=== PATIENT | female | born 1955 | race African-American/Black ===

== ENCOUNTER 2020-01-24 02:15 | Inpatient (IN) | payer MEDICARE, MEDICAID, OTHER ==
[2020-01-24 03:16] LABS: Anion Gap 19 mmol/L (10-20); BUN (Urea Nitrogen) 7 mg/dL (9.8-20.1); Calc. Creatinine Clearance 0 mL/min (70-130); Calcium 9.6 mg/dL (7.8-10.44); Carbon Dioxide 23 mmol/L (23-31); Chloride 100 mmol/L (98-107); Estimated GFR-MDRD Greater than 90; Glucose 119 mg/dL (80-115); Potassium 3.3 mmol/L (3.5-5.1); Sodium 139 mmol/L (136-145)
--- NOTE | 2020-01-24 07:09 | PDOC.HHP ---
Hospitalist HPI - History of Present Illness Abdominal Pain and diarrhea History of Present Illness: PCP:Unknown The patient is a poor historian, so the H&P was taken from her daughter, Kirstin Asencio via telephone. The patient is a 64 year old female with past medical history significant for HTN and paranoid schizophrenia that presents to the hospital as a transfer from [place] [facility] for abdominal pain for approximately 1-2 weeks. The patient has been complaining of abdominal pain, loc ated pelvic region, described as "my body is breaking down", exacerbated and relieved by nothing. She currently denies any abdominal pain. Reports associated diarrhea. Denies nausea, vomiting, hematochezia, melena. Denies any urinary symtpoms. Denies fever or chills. At [place] emergency room, she was found to have hyperbilirubinemia, hypomagnesium, hyperkalemia and elevated alk. phos with mild transaminitis. CT abdomen/pelvis and RUQ were performed, along with replacement of electrolytes. General surgery and oncology were consulted as well. The patient was transferred to [facility] for further evaluation. ED Course: VITAL SIGNS Katie Jan 24, 2020 02:25 MARLA Busch Susannah BP: 189/106, MAP: 133, Pulse: 76, Resp: 20, Temp: 98.5 (Oral), Pain: 0, O2 sat: 98 on (Room Air), Time: 01/24/2020 02:25. VITAL SIGNS [facility] Jan 24, 2020 03:41 MARLA Busch Susannah BP: 174/80, MAP: 111, Pulse: 79, Resp: 15, Temp: 98.7 (Oral), Pain: 0, O2 sat: 97 on (Room Air), Time: 01/24/2020 03:41. VITAL SIGNS [facility] Jan 24, 2020 05:09 MARLA Busch Susannah BP: 157/82, Pulse: 77, Resp: 16, Temp: 98.3 (Oral), Pain: 0, O2 sat: 96 on (Room Air), Time: 01/24/2020 05:09. VITAL SIGNS [facility] Jan 24, 2020 06:11 MARLA Busch Susannah BP: 120/62, Pulse: 75, Resp: 16, Temp: 98.1 (Oral), Pain: 0sleep, O2 sat: 98 on (Room Air), Time: 01/24/2020 06:11 Medications: NS maintenance fluid. Hospitalist ROS - Review of Systems Constitutional: denies: fever, chills Eyes: denies: vision change ENT: denies: throat pain Respiratory: denies: cough, shortness of breath, hemoptysis, SOB with excertion, pleuritic pain, sputum, wheezing Cardiovascular: denies: chest pain, palpitations, edema, light headedness Gastrointestinal: reports: abdominal pain (pelvic region, generalized), diarrhea. denies: nausea, vomiting, melena, hematochezia Genitourinary: denies: dysuria, frequency, hematuria, retention Musculoskeletal: reports: other (generalized) Skin: denies: rash, bruising Neurological: reports: weakness (generalized). denies: change in speech All other systems reviewed; all pertinent +/- noted in HPI/Subj - Medication Medications: Unknown. Daughter to bring home medications to hospital this morning. Allergies: No Known Drug Allergies Hospitalist History - Past Medical History Source: patient, RN notes reviewed, old records Cardiac: reports: HTN Psych: reports: Schizophrenia (paranoid) - Past Surgical History Past Surgical History: reports: no pertinent history - Family History Family History: reports: Other (non contributory for cancer) - Social History Smoking Status: Never smoker Alcohol: reports: None Drugs: reports: none Living Situation: With Family Occupation: Lives in [place] with daughter, fully independant, disabled/does not work Activity level: independent ambulation - Exam General Appearance: NAD, awake alert Eye: PERRL, scleral icterus ENT: normocephalic atraumatic, moist mucosa Neck: supple, symmetric, no JVD Heart: RRR, no murmur, no gallops, no rubs, normal peripheral pulses, murmur present, II/IV Respiratory: CTAB, no wheezes, no rales, no ronchi, normal chest expansion, no tachypnea Gastrointestinal: soft, non-tender, non-distended, normal bowel sounds, no bruit, no guarding, no rigidity Extremities: no cyanosis, no edema Skin: no rashes Neurological: cranial nerve grossly intact, normal sensation to touch, no weakness, no focal deficits Musculoskeletal: normal tone, normal strength Psychiatric: A&O x 3. negative: normal affect (Flat) Hospitalist Results - Labs Result Diagrams: 01/24/20 02:48 Lab results: Sodium 139 mmol/L (136-145) 01/24/20 02:48 Potassium 3.3 mmol/L (3.5-5.1) L 01/24/20 02:48 Chloride 100 mmol/L (98-107) 01/24/20 02:48 Carbon Dioxide 23 mmol/L (23-31) 01/24/20 02:48 BUN 7 mg/dL (9.8-20.1) L 01/24/20 02:48 Creatinine 0.56 mg/dL (0.6-1.1) L 01/24/20 02:48 Glucose 119 mg/dL (80-115) H 01/24/20 02:48 Calcium 9.6 mg/dL (7.8-10.44) 01/24/20 02:48 Laboratory Tests 01/23/20 01/23/20 01/23/20 23:20 23:20 23:30 WBC 7.7 Hgb 11.4 L Hct 37.4 Plt Count 324 PT 15.7 H INR 1.3 APTT 37.0 H Urine Protein 30 A Urine Glucose (UA) 100 A Urine Ketones Trace A Urine Blood Trace A Urine Bilirubin Large A Amorphous Crystals Rare A Urine Bacteria 1+ A - Radiology Interpretation US - abdomen Status: report reviewed by me Additional Comment: RUQ U/S revealed a CBD of 6.9 mm, mild intrahepatic biliary ductal dilation, and mild GB wall thickening noted at 4 mm. No pericholecystic fluid, cholelithiasis. CT scan - abdomen Status: report reviewed by me Additional Comment: Abdomen/pelvis CT scan, with contrast shows, Other findings: Numerous metastatic lesions involving the right eighth rib, liver, abdominal lymph nodes, peritoneum, bladder, spine, and sacrum. Metastatic colon cancer favored. Hospitalist H&P A/P - Problem (1) Hyperbilirubinemia Code(s): E80.6 - OTHER DISORDERS OF BILIRUBIN METABOLISM Status: Acute (2) Hypokalemia Code(s): E87.6 - HYPOKALEMIA Status: Acute (3) Low magnesium level Code(s): R79.0 - ABNORMAL LEVEL OF BLOOD MINERAL Status: Acute (4) Metastatic disease Code(s): C79.9 - SECONDARY MALIGNANT NEOPLASM OF UNSPECIFIED SITE Status: Acute (5) Paranoid schizophrenia Code(s): F20.0 - PARANOID SCHIZOPHRENIA Status: Chronic - Plan Plan: 64/F with presents as transfer from [place] emergency department for chief complaint of abdominal pain. Admit to medical floor, inpatient status. Expected length of stay greater than 2 midnights. #Hyperbilirubinemia Presented with T bilirubin 10. Alk phos 1060. Mild transaminitis: AST 107, ALT 102. RUQ positive cholelithiasis with mild gallbladder wall thickening with intrahepatic duct dilatation. CTA ABD/pelvis Focal luminal thickening to the transverse colon, suspected malignancy, recommend colonoscopy. Possible cholecystitis with cholelithiasis and intra-hepatic biliary ductal dilatation, consider GI and surgery consultation. Peritoneal metastatic disease/carcinomatosis suspected. 1.2 cm left adrenal lesion, CT chest recommended. Numerous lesions throughout the visualized spine, cannot exclude metastatic disease. Destructive soft tissue lesions of the sacrum, consider PET CT. Right eighth rib solid lesion, measuring 7 x 5.1 cm,, recommend MRI/CT Consult GI, oncology, general surgery. N.p.o. IV fluids. Potassium 40 mEq x 1 dose now. Monitor electrolytes. Analgesia and antiemetics PRN. #Hypokalemia Patient presented with a potassium of 2.5, replaced in Rodríguez. On admission K 3.3. Will replace with 40 mEq IVP x1 now. Recheck level in a.m. #Low serum magnesium level Presented with a magnesium level 1.4, replaced in Rodríguez. Currently Mg 2.0. We will continue to monitor. #Metastatic disease There is no family history of cancer. Upon examination, patient resting comfortably in bed. We have consulted oncology and general surgery, along with GI. Recommendations as above. #Paranoid schizophrenia Stable. Denies SI/HI. Upon exam flat affect, cooperative. Daughter to bring home medication list today. When reconciled, will restart home medications as appropriate. Lovenox for DVT prophylaxis. Protonix for GI prophylaxis. Full code. Designated medical decision-maker is Kirstin Asencio (daughter) at [phone]. Discussed case with Dr. Aiken.
--- NOTE | 2020-01-24 07:21 | ULT ---
PRELIMINARY REPORT/[facility]/EMERGENCY AFTER HOURS PROCEDURE Receipt of this report by the clinical staff was confirmed with Raquel Lozano MD by Suly Navarro on S 2019 03:37:00 CDT. Addendum electronically signed by Suly Navarro on January 24, 2020 3:38:46 AM CDT EXAM: US Abdomen Limited, Right Upper Quadrant. CLINICAL HISTORY: Abd pain, diarrhea, hyperbilirubin TECHNIQUE: Real-time ultrasound of the right upper quadrant with image documentation. COMPARISON: None provided. FINDINGS: LIVER: Measures 16 cm. GALLBLADDER: Mobile cholelithiasis measures up to 2.8 cm. Mild wall thickening is noted at 4 mm. No pericholecyst ic fluid. COMMON BILE DUCT: Appears prominent at 6.9 mm. Mild intrahepatic biliary ductal dilatation is noted. PANCREAS: The pancreatic duct measures 3 mm. The distal pancreas is obscured by overlying bowel gas. RIGHT KIDNEY: Unremarkable. No hydronephrosis. Measures 10 cm and demonstrates a 1 cm cyst IMPRESSION: Cholelithiasis with mild gallbladder wall thickening suggesting acute cholecystitis. Mild intrahepat ic biliary ductal dilatation is noted. ELECTRONICALLY SIGNED BY: Jaun Mcdonald MD Jan 24, 2020 3:34:23 AM CDT This report is intended for review by the ordering physician only, in accordance of law. If you recei ve this report in error, please call [facility] at [phone]. FINAL REPORT EXAM: US Gallbladder RUQ CLINICAL HISTORY: Abdominal pain. Diarrhea. Hyperbilirubinemia. COMPARISON: None. FINDINGS: Pancreas: Head of the pancreas has a normal echotexture. The remainder the pancreas is obscured by b owel gas Liver:Hepatic parenchyma has a normal echotexture. No hepatic masses or intrahepatic biliary dilatati on. Right hepatic lobe: 16 cm cm Gallbladder: Sonographic evidence of cholelithiasis. Juice Tester gallstone measures 2.8 cm. Gallbl adder wall is thickened, measuring 0.4 cm. No pericholecystic fluid.. Galeas's sign:Negative Portal Vein: Patent. Appropriate directional flow Bile ducts: Prominent common bile duct measuring 0.7 cm. There is intrahepatic biliary dilatation. Right kidney: No hydronephrosis. 1 cm exophytic cyst.. Right kidney measures 10.1 x 4.1 x 4.2 cm in l ength. IMPRESSION: 1. This report is in agreement with initial report by [facility]. 2. Sonographic evidence of cholelithiasis with gallbladder wall thickening. No pericholecystic fluid. Negative Galeas's sign. Findings are equivocal for cholecystitis. Consider HIDA scan. 3. Dilatation of the common bile duct and intrahepatic biliary system. Correlate for choledocholithia sis. Transcribed Date/Time: 01/24/2020 7:37 AM
[2020-01-24 07:35] VITALS: BMI 24.1
--- NOTE | 2020-01-24 07:43 | CT ---
PRELIMINARY REPORT/[facility]/EMERGENCY AFTER HOURS PROCEDURE CLINICAL HISTORY: Pt is a 64 yo female with PMH significant for schizophrenia, HTN who presents as a transfer for a [address] [place] history of abdominal pain. She states the pain is in the lower quadrants which brought her in but she denies any pain at this time. She denied N/V, constipation, melena. Endorsed a diarrhea since 2 weeks ago and has become incontinent. She otherwise denies any review of systems. She denies any prior liver pathology including hepatitis. She was encouraged by her family to be seen in the ED. TECHNIQUE: Axial computed tomography images of the abdomen with intravenous contrast. CONTRAST: With; ISOVUE & ISOVUE 370,100mL COMPARISON: Ultrasound gallbladder same day FINDINGS: LUNG BASES: Visceral pleural reflection in the right lung is noted, simulating a pneumothorax. Medially, a bleb is visualized. HEPATICO PANCREATIC BILIARY There is soft tissue fullness in the region of the aparna hepatis with what appears to be enhancing ve rsus necrotic lymph nodes (for example axial image 55/187, series 5). Cholelithiasis Marked biliary distention and wall thickening with intrahepatic ductal dilation; CBD does not appear overtly dilated. Mild free fluid surrounding the liver. Free fluid in the right paracolic gutter. Pancreatic duct is seen, not significantly dilated. SPLEEN: Unremarkable. ADRENAL GLANDS: 1.2 cm left adrenal lesion. KIDNEYS, URETERS, AND BLADDER: Focal nodular focus of enhancement along the posterior, superior bladder wall, best seen on axial bobby ge 149, series 5, sagittal image 602. It measures approximately 2.5 cm. No hydronephrosis or nephrolithiasis. No ureteral or bladder calculi. STOMACH AND BOWEL: Moderate-sized hiatal hernia. Focal luminal thickening in the transverse colon noted on axial image 80. No CT evidence of colitis or acute diverticulitis. APPENDIX: No CT evidence for appendicitis. No free air. Some degree of omental nodularity. REPRODUCTIVE Unremarkable as visualized. VASCULATURE: No aortic aneurysm. Diffuse calcific atherosclerosis. BONES: Right 8th rib demonstrates a solid lesion, well-circumscribed, ovoid, measuring 7 x 5.1 cm. Numerous indeterminate (partially sclerotic, somewhat lytic/lucent) lesions throughout the visualized spine. While some have the appearance of hemangiomas, metastatic disease is not excluded. Destructive soft tissue lesions of the sacrum. ABDOMINAL WALL AND SOFT TISSUES: Unremarkable. IMPRESSION: Focal luminal thickening in the transverse colon noted on axial image 80. Colonoscopy should be cons idered, malignancy suspected until proven otherwise. I favor the constellation of other findings are related to metastatic colon cancer. I am not convinced the patient have acute cholecystitis alth ough the gallbladder is distended and there is a gallstone; there is intrahepatic biliary ductal dilation, however given the constellation enhancing soft tissue mass and adenopathy in the aparna hepa tis region and around the pancreatic head, metastatic disease or external obstructing etiology favored. Consider MRCP, GI and surgical consultation. Colonoscopy/PET CT are also likely indicated . Peritoneal metastatic disease/carcinomatosis suspected. Focal nodular focus of enhancement along the posterior, superior bladder wall, best seen on axial bobby ge 149, series 5, sagittal image 602. It measures approximately 2.5 cm. Possible metastatic focus. There is soft tissue fullness in the region of the aparna hepatis with what appears to be enhancing /n ecrotic lymph nodes (for example axial image 55/187, series 5). Visceral pleural reflection in the right lung is noted, simulating a pneumothorax. Medially, a bleb is visualized. CT chest recommended. 1.2 cm left adrenal lesion, indeterminate Numerous indeterminate (partially sclerotic, somewhat lytic/lucent) lesions throughout the visualized spine. While some have the appearance of hemangiomas, metastatic disease is not excluded. Destructive soft tissue lesions of the sacrum. Consider PET CT. Right 8th rib demonstrates a well-circumscribed ovoid solid lesion, measuring 7 x 5.1 cm. MRI/CT lam acterization should be considered ELECTRONICALLY SIGNED BY: Kee Corral MD Jan 24, 2020 4:53:28 AM CDT This report is intended for review by the ordering physician only, in accordance of law. If you recei ve this report in error, please call [facility] at [phone]. FINAL REPORT Exam: CT angiogram of the abdomen and pelvis TECHNIQUE: CT angiogram of the abdomen and pelvis performed with and without IV contrast. Sagittal an d coronal reformatted images are submitted for interpretation. FINDINGS: Abdomen CT: Chronic changes in lung bases. Normal heart size. Moderately distended gallbladder with gallstones. There is dilatation of the intrahepatic and extra h epatic biliary system. There is dilatation of the pancreatic duct. There is heterogeneous attenuation of the head of the pancreas, worrisome for pancreatic head mass. There are no abnormal enhancing masses in the liver, spleen or adrenal glands. Enhancing masses in the aparna hepatis which may represent markedly lymphadenopathy. Exophytic hypodensity emanating from the mid right renal cortex likely representing a cyst. Overall s ymmetric enhancement of the kidneys. Bilaterally no obstructive uropathy. No mesenteric mass, free air or free fluid. No evidence of a small bowel obstruction. Normal ileocecal junction. Normal caliber appendix. Scatter ed fecal material in a nondistended, nondilated colon. Diverticulosis, without evidence of diverticulitis. Pelvic CT: Uterus and adnexal structures do not demonstrate any acute abnormality. There is free fluid in the pe lvis. No significant lymphadenopathy, free air. There is abnormal enhancement involving the serosal margin of the dome of the urinary bladder. Osseous structures: There is evidence of a post traumatic fracture involving multiple right ribs. There is a large soft t issue mass expanding and eroding what is likely the eighth right rib. This soft tissue mass measures 5.8 x 4.3 cm. There are additional metastatic deposits/malignancy involving multiple thoraci c and lumbar vertebra, as well as the left aspect of the sacrum as well as the left and right iliac wing. Supervisor [employer] Workroom lesion in the right iliac bone measures 2.9 cm. Supervisor [employer] Work[employer] lesion in the sac rum measures 4.4 x 2.8 cm. There is presumed involvement of the left S2, S3 neural foramina. Additionally there is a metastatic focus in the right S3 level. Chronic joint changes in the right hip. IMPRESSION: 1. This report is in agreement with initial report by [facility]. 2. There appears to be extensive metastases with marked lymphadenopathy and osseous involvement. 3. Distribution may be due to a primary pancreatic mass involving the head of the pancreas with resul tant dilatation of the intra and extrahepatic biliary system. Evaluation of the alimentary canal is limited due to lack of adequate oral contrast distention. There are short segment of colonic mucosal thickening which may be due to inadequate distention. Underlying neoplasm cannot be excluded. 4. Further workup with a CT-guided biopsy of the right rib mass is recommended to obtain pathologic d iagnosis of tissue. Additionally, consider colonoscopy and abdomen MRI depending on the pathology results from the CT-guided biopsy. Transcribed Date/Time: 01/24/2020 7:53 AM
[2020-01-24] MEDS ORDERED: Ondansetron ODT 4 MG TAB PO PRN ×2 (07:47→08:23)
[2020-01-24] MEDS ORDERED: Ondansetron PF 4 MG/2 ML Vial IVP PRN ×2 (07:47→08:23)
[2020-01-24] MEDS ORDERED: Acetaminophen 325 MG TAB PO PRN ×2 (07:47→08:23)
[2020-01-24] MEDS ORDERED: Sodium Chloride 0.9% 1,000 ML IV SCH ×2 (08:00→08:55)
[2020-01-24] MEDS ORDERED: Morphine 2 MG/ML VIAL SLOW IVP PRN (08:27)
[2020-01-24] MEDS ORDERED: Potassium Chloride 40 MEQ in Premix Bag 1 BAG IVPB SCH (08:45)
[2020-01-24] MEDS: Potassium Chloride 20 MEQ in Premix Bag 1 BAG IVPB SCH ×2 (09:59→13:33)
[2020-01-24] MEDS: Enoxaparin Sodium 30 MG/0.3 ML SYRINGE SC SCH (09:59)
--- NOTE | 2020-01-24 11:52 | CON ---
DATE OF CONSULTATION: REASON FOR CONSULTATION: Possible metastatic disease. HISTORY OF PRESENT ILLNESS: Ms. Asencio is a 64-year-old female with a medical history of schizophrenia and hypertension, who was brought to the emergency room by her family for stool incontinence, jaundice, and weight loss over the past several weeks. She was apparently also having some diarrhea. She had a chemistry drawn in the emergency room, that showed a bilirubin of 10, so she underwent a CT of the abdomen and pelvis, that showed luminal thickening in the transverse colon. There was peritoneal metastatic disease. She had a nodular focus in the superior bladder wall. There was a soft tissue focus in the aparna hepatis, which was likely a necrotic lymph node. There was a 1.2 cm adrenal lesion. There were multiple lesions throughout the spine. There was a destructive soft tissue lesion in the sacrum. There was a soft tissue lesion in the right 8th rib, measuring 7 x 5.1 cm, all of which were concerning for neoplasm. She was then transferred to this facility and admitted for further workup. GI has been consulted. The patient was seen at bedside. There was no family present. She states that she has actually been constipated and taking a laxative to help her have a bowel movement. She states she eats well, but has lost weight. No known family history of cancer. She denies any pain at this time. PAST MEDICAL HISTORY: 1. Schizophrenia. 2. Hypertension. PAST SURGICAL HISTORY: None. ALLERGIES: UNKNOWN. HOME MEDICATIONS: Unknown. FAMILY HISTORY: She denies any known history of cancer. SOCIAL HISTORY: Lives with her daughter in [place]. Denies any alcohol, tobacco, or illicit drug use. REVIEW OF SYSTEMS: Ten-point review of systems is negative except for noted in HPI. PHYSICAL EXAMINATION: VITAL SIGNS: Temperature is 98.1, pulse is 75, respiratory rate 16, BP is 120/62, and she is 98% on room air. GENERAL: This is a well-developed, well-nourished female, in no acute distress. HEENT: Normocephalic and atraumatic. NECK: Supple. CV: Regular rate and rhythm. LUNGS: Clear anterior. ABDOMEN: Soft and nontender. Bowel sounds are positive. There is no hepatomegaly. EXTREMITIES: No clubbing or cyanosis. SKIN: No rash. NEUROLOGIC: Nonfocal. PERTINENT LABORATORY DATA AND X-RAYS: Current WBCs are 7.7, hemoglobin 11.4, hematocrit 37.4, and platelet count 324,000. She has 70% neutrophils and 20% lymphocytes. PT is 15.7, INR is 1.3, and PTT is 37. Sodium 139, potassium 3.3, chloride 100, CO2 is 23, BUN is 7, creatinine 0.56, and calcium 9.6. Magnesium 2. Bilirubin 10, AST is 107, ALT is 102, alkaline phosphatase is 1060, serum total protein 6.9, albumin 3.4, globulin 3.5, and lipase is 132. TSH is normal. Urine showed 1+ bacteria with negative leukocyte esterase or nitrite, but trace blood. Radiology per HPI. ASSESSMENT: Extensive metastatic disease with bone involvement, possibly gi malignancy. DISCUSSION: The patient needs a tissue biopsy for diagnosis. She has never had a colonoscopy, and per conversation, she is not interested in getting one. I would recommend a CT-guided biopsy of this large right rib mass to obtain pathological diagnosis. GI has been consulted for their opinion regarding her hyperbilirubinemia. We would recommend a palliative care consult as well. We will return with recommendations once a tissue diagnosis has been confirmed. Thank you for the consult. Job ID: [id number] [email or web address]
[2020-01-24 15:28] LABS: Bilirubin 2+ (Negative); Blood, Urine Negative (Negative); Clarity Turbid (Clear); Glucose, Urine (Dipstick) Normal (Negative); Ketone, Urine Negative (Negative); Leukocyte Negative Leu/uL (Negative); Nitrite Negative (Negative); Protein, Urine (Dipstick) 10 mg/dL (Neg-Trace); RBC/HPF 0-3 HPF (0-3); Specific Gravity, Urine 1.035 (1.002-1.036); Urobilinogen Normal mg/dL (Less than 2)
[2020-01-24 15:33] LABS: Bacteria/HPF None Seen HPF (None Seen)
[2020-01-24 17:13] LABS: SARS-CoV-2 MS2 Positive; SARS-CoV-2 N Gene Negative; SARS-CoV-2 S Gene Negative; SARS-CoV-2 by NAA Not Detected (NotDetected); SARS-CoV-2 orf1ab Negative
--- NOTE | 2020-01-24 21:00 | CON ---
DATE OF CONSULTATION: 01/24/2020 CHIEF COMPLAINT: Abdominal pain. HISTORY OF PRESENT ILLNESS: Ms. Asencio is a 64-year-old woman who was brought to the emergency room in [place] by her daughter. Her daughter reports that she has been complaining of a burning epigastric discomfort, which is unusual for her. The patient states that she felt like her body had shut down a couple of different times, is unable to really describe this in more detail. The patient has not had nausea, vomiting, diarrhea, constipation, or blood in the stool. In the emergency room, she underwent CT scan of the abdomen and pelvis that showed multiple metastatic lesions in the abdomen and bones. GI was consulted to assist with obstructive jaundice from a pancreatic tumor and possible question of colon thickening by CT scan. PAST MEDICAL HISTORY: Significant for paranoid schizophrenia, for which she gets injections monthly, hypertension. She lives with her daughter, but has been able to maintain her ADLs herself. PAST SURGICAL HISTORY: Negative. FAMILY HISTORY: Negative for GI malignancies. SOCIAL HISTORY: No alcohol, tobacco, or drugs. ALLERGIES: NO KNOWN DRUG ALLERGIES. MEDICATIONS: Currently in the hospital, enoxaparin, pantoprazole. She has been on an injectable antipsychotic as an outpatient. She has been on bisoprolol with hydrochlorothiazide as an outpatient. REVIEW OF SYSTEMS: Negative x10 systems reviewed except as stated in history of present illness. PHYSICAL EXAMINATION: VITAL SIGNS: Temperature 98.9, pulse 80, blood pressure 149/81. GENERAL: She is in no acute distress. Alert and oriented x3. Her eyes have no scleral icterus. Oropharynx is clear without lesions. No cervical or supraclavicular lymphadenopathy. LUNGS: Clear to auscultation bilaterally. HEART: Regular rate and rhythm without murmur. ABDOMEN: Soft, nontender, and nondistended. Bowel sounds are present. EXTREMITIES: No lower extremity edema. NEUROLOGIC: Cranial nerves are grossly intact. LABORATORY DATA: White blood cell count 7.7, hemoglobin 11.4, MCV 86, platelets 324. INR 1.3. Creatinine 0.56. Bilirubin 10, AST 107, ALT 102, alkaline phosphatase 1060, albumin 3.4, lipase 132. TSH 1.12. IMAGING DATA: CT scan of the abdomen and pelvis shows metastatic disease with lymphadenopathy and bone involvement. She has a pancreatic mass involving the head of the pancreas causing dilation of the intra and extrahepatic bile ducts. The pancreatic duct is also dilated. There is a segment of colonic mucosal thickening. There are metastases in the liver and adrenal glands and bone and ribs and sacrum. IMPRESSION: Metastatic disease to the ribs and sacrum and liver and lymph nodes and adrenal glands. She has a mass in the head of the pancreas with obstructive jaundice. I would suspect pancreatic cancer would be most likely. There is a segment of colon thickening in the colon, which could indicate a neoplastic process there, but primary colon malignancy would be unlikely to have this type of presentation. RECOMMENDATIONS: 1. CT-guided biopsy of the rib lesion. 2. She and her daughter will consult with palliative care and Oncology. The patient has no abdominal pain or pruritis. If she chooses to undergo hospice care, then there is no indication for biliary stenting at this time. If the patient achieves a diagnosis and decides with Oncology that she will follow through with chemotherapy and it is expected that the chemotherapy will need to have biliary drainage, then we can perform ERCP with metal stenting of the bile ducts. 3. I will order a CT-guided biopsy of the rib lesion. I will then be available as needed depending on Oncology recommendations regarding treatment as to whether or not a biliary drainage becomes necessary. Please call if we can be of help in the meantime. Otherwise, I will follow up next week. Job ID: [id number]
[2020-01-25 06:11] LABS: INR-International Normal Ratio 1.2; PTT 33.2 sec (22.9-36.1); Prothrombin Time 15.3 sec (12.0-14.7)
[2020-01-25 06:12] LABS: #Basophils 0.1 thou/uL (0.0-0.2); #Eosinphils 0.3 thou/uL (0.0-0.7); #Lymphocytes 1.7 thou/uL (1.20-3.40); #Monocytes 0.6 thou/uL (0.11-0.59); #Neutrophils 4.4 thou/uL (1.40-6.50); %Basophils 0.7 % (0.0-1.0); %Eosinophils 4.6 % (0.0-10.0); %Lymphocytes 24.4 % (21.0-51.0); %Neutrophils 62.3 % (42.0-75.0); Hemoglobin 10.6 g/dL (12.0-16.0); Mean Corpuscular HGB CONC 31.9 g/dL (32.0-36.0); Mean Corpuscular Volume 84.7 fL (78.0-98.0); Mean Platelet Volume 8.7 fL (7.4-10.4); Platelet Count 362 thou/uL (130-400); Red Blood Cell (RBC) Count 3.93 mill/uL (4.20-5.40); White Blood Cell (WBC) Count 7.1 thou/uL (4.8-10.8)
[2020-01-25 06:26] LABS: ALT (SGPT) 84 U/L (8-55); AST (SGOT) 100 U/L (5-34); Alkaline Phosphatase 994 U/L (40-110); Anion Gap 14 mmol/L (10-20); BUN (Urea Nitrogen) 8 mg/dL (9.8-20.1); Bilirubin, Total 9.8 mg/dL (0.2-1.2); Calc. Creatinine Clearance 96 mL/min (70-130); Calcium 9.2 mg/dL (7.8-10.44); Carbon Dioxide 25 mmol/L (23-31); Chloride 101 mmol/L (98-107); Estimated GFR-MDRD Greater than 90; Globulin 3.1 g/dL (2.4-3.5); Glucose 93 mg/dL (80-115); Potassium 3.6 mmol/L (3.5-5.1); Protein, Total 6.1 g/dL (6.0-8.3); Sodium 136 mmol/L (136-145)
[2020-01-25] MEDS: Pantoprazole 40 MG VIAL IVP SCH (08:08)
[2020-01-25] MEDS ORDERED: Sodium Bicarbonate 2.5 MEQ/5 ML VIAL ONE (10:14)
[2020-01-25] MEDS ORDERED: Midazolam HCl 2 mg/2 ml Vial ONE (10:14)
[2020-01-25] MEDS ORDERED: Fentanyl 100 MCG/2 ML VIAL ONE (10:14)
[2020-01-25] MEDS ORDERED: Benztropine Mesylate 2 MG/2 ML VIAL IM SCH (13:00)
[2020-01-25] MEDS: Enoxaparin Sodium 30 MG/0.3 ML SYRINGE SC SCH (13:26)
--- NOTE | 2020-01-25 13:56 | PDOC.HOSPP ---
- Subjective Encounter Date: 01/25/20 Encounter Time: 10:30 Subjective: Patient seen in follow-up regarding jaundice. Complains of pain over the right ribs. Pleuritic. - Objective Vital Signs & Weight: Vital Signs (12 hours) Temp Pulse Resp BP BP Pulse Ox 01/25/20 11:23 98.3 F 85 20 156/82 H 96 01/25/20 08:13 95 01/25/20 07:22 98.5 F 80 18 134/87 95 01/25/20 04:10 98.6 F 75 16 167/85 H 94 L Weight Admit Weight 145 lb Weight 145 lb I&O: 01/24/20 01/25/20 01/26/20 06:59 06:59 06:59 Intake Total 1600 Output Total 300 Balance 1300 Result Diagrams: 01/25/20 05:36 01/25/20 05:36 Additional Labs: I reviewed patient's labs and MAR Hospitalist ROS - Review of Systems Cardiovascular: reports: chest pain. denies: palpitations, orthopnea, paroxysmal noc. dyspnea, edema, light headedness Gastrointestinal: denies: nausea, vomiting, abdominal pain, diarrhea, constipation, melena, hematochezia - Medication Medications: Active Medications Generic Name Dose Route Start Last Admin Trade Name Freq PRN Reason Stop Dose Admin Enoxaparin Sodium 30 mg 01/24/20 09:00 01/25/20 13:26 Enoxaparin Sodium 30 Mg/0.3 Ml Syringe SC Not Given 0900 DONNA Pantoprazole Sodium 40 mg 01/25/20 09:00 01/25/20 08:08 Pantoprazole 40 Mg Vial IVP 40 mg DAILY DONNA Administration Sodium Chloride 10 ml 01/24/20 09:00 01/25/20 08:08 Flush - Normal Saline 10 Ml Syringe IVF 10 ml Q12HR DONNA Administration Sodium Chloride 10 ml 01/24/20 08:00 01/24/20 08:17 Flush - Normal Saline 10 Ml Syringe IVF 10 ml PRN PRN Administration Saline Flush - Exam General Appearance: awake alert Eye: scleral icterus ENT: normocephalic atraumatic Neck: supple Heart: RRR Respiratory: CTAB Gastrointestinal: soft, non-tender Extremities: no cyanosis Musculoskeletal - other findings: Reproducible right chest wall tenderness Hosp A/P - Plan Assessment: (1) Hyperbilirubinemia Code(s): E80.6 - OTHER DISORDERS OF BILIRUBIN METABOLISM Status: Acute (2) Metastatic disease Code(s): C79.9 - SECONDARY MALIGNANT NEOPLASM OF UNSPECIFIED SITE Status: Acute (3) Paranoid schizophrenia Code(s): F20.0 - PARANOID SCHIZOPHRENIA Status: Chronic (4) Hypokalemia Code(s): E87.6 - HYPOKALEMIA Status: Resolved (5) Low magnesium level Code(s): R79.0 - ABNORMAL LEVEL OF BLOOD MINERAL Status: Resolved Plan: Patient seen by oncology and gastroenterology services, appreciate input. CT-guided biopsy of the rib mass has been ordered. Patient and family are trying to decide goals of care. Palliative care service has been consulted. Add lidocaine patch for pain control. Resume benztropine and Prolixin D.
[2020-01-25] MEDS: Lidocaine 5% Patch TD SCH (14:22)
--- NOTE | 2020-01-25 15:56 | PRG ---
DATE OF SERVICE: 01/25/2020 SUBJECTIVE: Ms. Asencio has no complaints. No abdominal pain. OBJECTIVE: Abdomen is soft, nontender, and nondistended. IMPRESSION: 1. Widely metastatic disease. She is trying to decide whether or not she wants follow through with biopsy of the rib mass. 2. Obstructive jaundice secondary to pancreatic mass. RECOMMENDATIONS: 1. If the patient chooses to undergo biopsy and then from that information decides to follow through with chemotherapy. Please call us back and we can discuss stent placement/ERCP for biliary drainage to allow her to receive chemo. 2. I will sign off for now. Please call if GI can be of assistance. Job ID: [id number]
[2020-01-25] MEDS: Benztropine 1 MG TAB PO SCH (20:21)
[2020-01-26] MEDS: Lidocaine Patch Removal 1 EACH TOP SCH (02:32)
[2020-01-26 07:40] LABS: ALT (SGPT) 93 U/L (8-55); AST (SGOT) 112 U/L (5-34); Albumin 3.3 g/dL (3.4-4.8); Alkaline Phosphatase 1079 U/L (40-110); Anion Gap 15 mmol/L (10-20); BUN (Urea Nitrogen) 6 mg/dL (9.8-20.1); Bilirubin, Total 11.6 mg/dL (0.2-1.2); Calc. Creatinine Clearance 96 mL/min (70-130); Calcium 9.5 mg/dL (7.8-10.44); Carbon Dioxide 24 mmol/L (23-31); Chloride 99 mmol/L (98-107); Estimated GFR-MDRD Greater than 90; Globulin 3.3 g/dL (2.4-3.5); Glucose 108 mg/dL (80-115); Protein, Total 6.6 g/dL (6.0-8.3); Sodium 135 mmol/L (136-145)
[2020-01-26 07:51] LABS: Potassium 2.9 mmol/L (3.5-5.1)
[2020-01-26] MEDS: Benztropine 1 MG TAB PO SCH ×2 (08:47→21:11)
[2020-01-26] MEDS: Enoxaparin Sodium 30 MG/0.3 ML SYRINGE SC SCH (08:47)
[2020-01-26] MEDS: Bisoprolol Fumarate/HCTZ 10 mg/6.25 mg Tablet PO SCH (08:47)
[2020-01-26] MEDS: Potassium Chloride 20 MEQ TAB PO SCH ×2 (08:47→12:30)
[2020-01-26] MEDS: Pantoprazole 40 MG VIAL IVP SCH (08:48)
[2020-01-26] MEDS: Amlodipine 10 MG TAB PO SCH (08:48)
[2020-01-26 09:17] LABS: #Basophils 0.1 thou/uL (0.0-0.2); #Eosinphils 0.3 thou/uL (0.0-0.7); #Lymphocytes 1.5 thou/uL (1.20-3.40); #Monocytes 0.5 thou/uL (0.11-0.59); #Neutrophils 4.6 thou/uL (1.40-6.50); %Basophils 0.8 % (0.0-1.0); %Eosinophils 4.5 % (0.0-10.0); %Lymphocytes 21.8 % (21.0-51.0); %Monocytes 7.2 % (0.0-10.0); %Neutrophils 65.7 % (42.0-75.0); Hemoglobin 11.4 g/dL (12.0-16.0); Mean Corpuscular HGB CONC 32.5 g/dL (32.0-36.0); Mean Corpuscular Hemoglobin 27.3 pg (27.0-31.0); Mean Platelet Volume 9.5 fL (7.4-10.4); Platelet Count 382 thou/uL (130-400); RBC Distribution Width 16.2 % (11.5-14.5)
--- NOTE | 2020-01-26 12:06 | PDOC.HOSPP ---
- Subjective Encounter Date: 01/26/20 Encounter Time: 10:00 Subjective: Follow-up visit for hyperbilirubinemia. Patient denies any chest pain today. - Objective Vital Signs & Weight: Vital Signs (12 hours) Temp Pulse Resp BP BP Pulse Ox 01/26/20 08:56 94 L 01/26/20 08:48 77 133/83 01/26/20 08:00 98.8 F 77 18 133/83 94 L Weight Admit Weight 145 lb Weight 145 lb I&O: 01/25/20 01/26/20 01/27/20 06:59 06:59 06:59 Intake Total 1600 900 Output Total 300 1000 Balance 1300 -100 Result Diagrams: 01/26/20 06:46 01/26/20 06:46 Additional Labs: I reviewed patient's labs and MAR Hospitalist ROS - Review of Systems Cardiovascular: denies: chest pain, palpitations, orthopnea, paroxysmal noc. dyspnea, edema, light headedness Gastrointestinal: denies: nausea, vomiting, abdominal pain, diarrhea, constipation, melena, hematochezia - Medication Medications: Active Medications Generic Name Dose Route Start Last Admin Trade Name Freq PRN Reason Stop Dose Admin Amlodipine Besylate 10 mg 01/26/20 09:00 01/26/20 08:48 Amlodipine 10 Mg Tab PO 10 mg DAILY DONNA Administration Benztropine Mesylate 2 mg 01/25/20 21:00 01/26/20 08:47 Benztropine 1 Mg Tab PO 2 mg BID DONNA Administration Bisoprolol Fumarate/HCTZ 1 tab 01/26/20 09:00 01/26/20 08:47 Bisoprolol Fumarate/Hctz 10 Mg/6.25 Mg Tablet PO 1 tab DAILY DONNA Administration Enoxaparin Sodium 30 mg 01/24/20 09:00 01/26/20 08:47 Enoxaparin Sodium 30 Mg/0.3 Ml Syringe SC 30 mg 0900 DONNA Administration Lidocaine 1 patch 01/25/20 14:00 01/25/20 14:22 Lidocaine 5% Patch TD 1 patch 1400 DONNA Administration Miscellaneous Medication 1 each 01/26/20 02:00 01/26/20 02:32 Lidocaine Patch Removal 1 Each TOP Not Given 0200 DONNA Pantoprazole Sodium 40 mg 01/25/20 09:00 01/26/20 08:48 Pantoprazole 40 Mg Vial IVP 40 mg DAILY DONNA Administration Potassium Chloride 40 meq 01/26/20 08:15 01/26/20 08:47 Potassium Chloride 20 Meq Tab PO 01/26/20 12:16 40 meq Q4H DONNA Administration Sodium Chloride 10 ml 01/24/20 09:00 01/26/20 08:48 Flush - Normal Saline 10 Ml Syringe IVF 10 ml Q12HR DONNA Administration Sodium Chloride 10 ml 01/24/20 08:00 01/24/20 08:17 Flush - Normal Saline 10 Ml Syringe IVF 10 ml PRN PRN Administration Saline Flush - Exam General Appearance: awake alert Eye: scleral icterus ENT: moist mucosa Neck: supple Heart: RRR Respiratory: CTAB Gastrointestinal: soft, non-tender Extremities: no cyanosis Skin: no rashes Psychiatric: normal affect, normal behavior Hosp A/P - Plan Assessment: (1) Hyperbilirubinemia Code(s): E80.6 - OTHER DISORDERS OF BILIRUBIN METABOLISM Status: Acute (2) Metastatic disease Code(s): C79.9 - SECONDARY MALIGNANT NEOPLASM OF UNSPECIFIED SITE Status: Acute (3) Hypokalemia Code(s): E87.6 - HYPOKALEMIA Status: Acute (4) Paranoid schizophrenia Code(s): F20.0 - PARANOID SCHIZOPHRENIA Status: Chronic (5) Low magnesium level Code(s): R79.0 - ABNORMAL LEVEL OF BLOOD MINERAL Status: Resolved Plan: CT-guided biopsy of the rib mass was canceled yesterday because patient is trying to decide if she wants a procedure or not. Continue lidocaine patch for pain control, patient reports improvement in pain. Continue benztropine and Prolixin D. Replace potassium.
[2020-01-26] MEDS: Lidocaine 5% Patch TD SCH (13:31)
[2020-01-27] MEDS: Lidocaine Patch Removal 1 EACH TOP SCH (02:23)
[2020-01-27 06:12] LABS: #Basophils 0.1 thou/uL (0.0-0.2); #Eosinphils 0.4 thou/uL (0.0-0.7); #Lymphocytes 1.9 thou/uL (1.20-3.40); #Monocytes 0.6 thou/uL (0.11-0.59); %Eosinophils 5.3 % (0.0-10.0); %Lymphocytes 23.6 % (21.0-51.0); %Monocytes 7.3 % (0.0-10.0); %Neutrophils 62.8 % (42.0-75.0); Hemoglobin 11.2 g/dL (12.0-16.0); Mean Corpuscular HGB CONC 31.9 g/dL (32.0-36.0); Mean Corpuscular Hemoglobin 26.9 pg (27.0-31.0); Mean Corpuscular Volume 84.2 fL (78.0-98.0); Mean Platelet Volume 8.7 fL (7.4-10.4); Platelet Count 377 thou/uL (130-400); RBC Distribution Width 16.3 % (11.5-14.5); Red Blood Cell (RBC) Count 4.18 mill/uL (4.20-5.40); White Blood Cell (WBC) Count 7.9 thou/uL (4.8-10.8)
[2020-01-27 06:33] LABS: ALT (SGPT) 87 U/L (8-55); AST (SGOT) 112 U/L (5-34); Alkaline Phosphatase 1006 U/L (40-110); Anion Gap 15 mmol/L (10-20); BUN (Urea Nitrogen) 8 mg/dL (9.8-20.1); Bilirubin, Total 9.6 mg/dL (0.2-1.2); Calc. Creatinine Clearance 99 mL/min (70-130); Calcium 9.1 mg/dL (7.8-10.44); Carbon Dioxide 23 mmol/L (23-31); Chloride 99 mmol/L (98-107); Estimated GFR-MDRD Greater than 90; Globulin 3.7 g/dL (2.4-3.5); Glucose 100 mg/dL (80-115); Potassium 3.9 mmol/L (3.5-5.1); Protein, Total 6.7 g/dL (6.0-8.3); Sodium 133 mmol/L (136-145)
[2020-01-27] MEDS: Amlodipine 10 MG TAB PO SCH (08:11)
[2020-01-27] MEDS: Benztropine 1 MG TAB PO SCH ×2 (08:12→20:53)
[2020-01-27] MEDS: Bisoprolol Fumarate/HCTZ 10 mg/6.25 mg Tablet PO SCH (08:12)
[2020-01-27] MEDS: Pantoprazole 40 MG VIAL IVP SCH (08:13)
[2020-01-27] MEDS: Enoxaparin Sodium 30 MG/0.3 ML SYRINGE SC SCH (08:13)
--- NOTE | 2020-01-27 11:17 | PDOC.HOSPP ---
- Subjective Encounter Date: 01/27/20 Encounter Time: 08:00 Subjective: Patient seen in follow-up for bilirubinemia. She is sitting in bed denies any pain. Appears comfortable. - Objective Vital Signs & Weight: Vital Signs (12 hours) Temp Pulse Resp BP BP Pulse Ox 01/27/20 08:11 61 144/81 H 01/27/20 08:00 98.2 F 61 20 144/81 H 98 Weight Admit Weight 145 lb Weight 145 lb I&O: 01/26/20 01/27/20 01/28/20 06:59 06:59 06:59 Intake Total 900 800 Output Total 1000 1000 Balance -100 -200 Result Diagrams: 01/27/20 05:54 01/27/20 05:54 Additional Labs: I reviewed patient's labs and MAR Hospitalist ROS - Review of Systems Constitutional: denies: fever, chills, sweats Cardiovascular: denies: chest pain, palpitations, orthopnea, paroxysmal noc. dyspnea, edema, light headedness Skin: denies: rash, lesions, nahomy, bruising - Medication Medications: Active Medications Generic Name Dose Route Start Last Admin Trade Name Freq PRN Reason Stop Dose Admin Amlodipine Besylate 10 mg 01/26/20 09:00 01/27/20 08:11 Amlodipine 10 Mg Tab PO 10 mg DAILY DONNA Administration Benztropine Mesylate 2 mg 01/25/20 21:00 01/27/20 08:12 Benztropine 1 Mg Tab PO 2 mg BID DONNA Administration Bisoprolol Fumarate/HCTZ 1 tab 01/26/20 09:00 01/27/20 08:12 Bisoprolol Fumarate/Hctz 10 Mg/6.25 Mg Tablet PO 1 tab DAILY DONNA Administration Enoxaparin Sodium 30 mg 01/24/20 09:00 01/27/20 08:13 Enoxaparin Sodium 30 Mg/0.3 Ml Syringe SC 30 mg 0900 DONNA Administration Lidocaine 1 patch 01/25/20 14:00 01/26/20 13:31 Lidocaine 5% Patch TD 1 patch 1400 DONNA Administration Miscellaneous Medication 1 each 01/26/20 02:00 01/27/20 02:23 Lidocaine Patch Removal 1 Each TOP Not Given 0200 DONNA Pantoprazole Sodium 40 mg 01/25/20 09:00 01/27/20 08:13 Pantoprazole 40 Mg Vial IVP 40 mg DAILY DONNA Administration Sodium Chloride 10 ml 01/24/20 09:00 01/27/20 08:21 Flush - Normal Saline 10 Ml Syringe IVF 10 ml Q12HR DONNA Administration Sodium Chloride 10 ml 01/24/20 08:00 01/24/20 08:17 Flush - Normal Saline 10 Ml Syringe IVF 10 ml PRN PRN Administration Saline Flush - Exam General Appearance: awake alert Eye: scleral icterus ENT: normocephalic atraumatic Neck: supple Heart: RRR Respiratory: CTAB Gastrointestinal: soft, non-tender Extremities: no cyanosis Skin: no rashes Psychiatric: normal affect, normal behavior Hosp A/P - Plan Assessment: (1) Hyperbilirubinemia Code(s): E80.6 - OTHER DISORDERS OF BILIRUBIN METABOLISM Status: Acute (2) Metastatic disease Code(s): C79.9 - SECONDARY MALIGNANT NEOPLASM OF UNSPECIFIED SITE Status: Acute (3) Hypokalemia Code(s): E87.6 - HYPOKALEMIA Status: Acute (4) Paranoid schizophrenia Code(s): F20.0 - PARANOID SCHIZOPHRENIA Status: Chronic (5) Low magnesium level Code(s): R79.0 - ABNORMAL LEVEL OF BLOOD MINERAL Status: Resolved Plan: Patient told me today that she is leaning towards not having biopsy of the rib mass. Family has not gotten back to us yet about what they wish to do. Once goals of care are clear, will start discharge planning. Continue lidocaine patch for pain control. Continue benztropine and Prolixin D.
[2020-01-27] MEDS: Lidocaine 5% Patch TD SCH (14:02)
[2020-01-28] MEDS: Lidocaine Patch Removal 1 EACH TOP SCH (03:02)
[2020-01-28 06:12] LABS: ALT (SGPT) 86 U/L (8-55); AST (SGOT) 105 U/L (5-34); Albumin 3.1 g/dL (3.4-4.8); Alkaline Phosphatase 967 U/L (40-110); Anion Gap 14 mmol/L (10-20); BUN (Urea Nitrogen) 11 mg/dL (9.8-20.1); Bilirubin, Total 9.7 mg/dL (0.2-1.2); Calc. Creatinine Clearance 97 mL/min (70-130); Calcium 9.2 mg/dL (7.8-10.44); Carbon Dioxide 24 mmol/L (23-31); Chloride 95 mmol/L (98-107); Estimated GFR-MDRD Greater than 90; Globulin 3.2 g/dL (2.4-3.5); Glucose 104 mg/dL (80-115); Potassium 3.2 mmol/L (3.5-5.1); Protein, Total 6.3 g/dL (6.0-8.3); Sodium 130 mmol/L (136-145)
[2020-01-28 06:24] LABS: Band 7 % (5-11); Eosinophils 2 % (0-10); Hemoglobin 11.2 g/dL (12.0-16.0); Lymphocytes 28 % (21-51); MDiff Complete? YES; Mean Corpuscular HGB CONC 31.2 g/dL (32.0-36.0); Mean Corpuscular Hemoglobin 26.3 pg (27.0-31.0); Mean Corpuscular Volume 84.4 fL (78.0-98.0); Mean Platelet Volume 8.8 fL (7.4-10.4); Monocytes 9 % (0-10); Neutrophil 54 % (42-75); Platelet Count 393 thou/uL (130-400); RBC Distribution Width 16.4 % (11.5-14.5); Red Blood Cell (RBC) Count 4.26 mill/uL (4.20-5.40); Target Cells SLIGHT = 2-5 cells (100X) (0-1/hpf); White Blood Cell (WBC) Count 9.2 thou/uL (4.8-10.8)
[2020-01-28] MEDS: Benztropine 1 MG TAB PO SCH ×2 (10:05→21:05)
[2020-01-28] MEDS: Enoxaparin Sodium 30 MG/0.3 ML SYRINGE SC SCH (10:05)
[2020-01-28] MEDS: Amlodipine 10 MG TAB PO SCH (10:05)
[2020-01-28] MEDS: Pantoprazole 40 MG VIAL IVP SCH (10:06)
[2020-01-28] MEDS: Bisoprolol Fumarate/HCTZ 10 mg/6.25 mg Tablet PO SCH (10:06)
--- NOTE | 2020-01-28 14:07 | PDOC.HOSPP ---
- Subjective Encounter Date: 01/28/20 Encounter Time: 11:30 Subjective: Patient seen for follow-up regarding hyperbilirubinemia. Denies any complaints today. - Objective Vital Signs & Weight: Vital Signs (12 hours) Temp Pulse Resp BP Pulse Ox 01/28/20 08:00 98.5 F 61 20 131/81 95 Weight Admit Weight 145 lb Weight 145 lb I&O: 01/27/20 01/28/20 01/29/20 06:59 06:59 06:59 Intake Total 800 760 Output Total 1000 Balance -200 760 Result Diagrams: 01/28/20 05:12 01/28/20 05:12 Additional Labs: I reviewed patient's labs and MAR Hospitalist ROS - Review of Systems Cardiovascular: denies: chest pain, palpitations, orthopnea, paroxysmal noc. dyspnea, edema, light headedness Genitourinary: denies: dysuria, frequency, incontinence, hematuria, retention - Medication Medications: Active Medications Generic Name Dose Route Start Last Admin Trade Name Freq PRN Reason Stop Dose Admin Amlodipine Besylate 10 mg 01/26/20 09:00 01/28/20 10:05 Amlodipine 10 Mg Tab PO 10 mg DAILY DONNA Administration Benztropine Mesylate 2 mg 01/25/20 21:00 01/28/20 10:05 Benztropine 1 Mg Tab PO 2 mg BID DONNA Administration Bisoprolol Fumarate/HCTZ 1 tab 01/26/20 09:00 01/28/20 10:06 Bisoprolol Fumarate/Hctz 10 Mg/6.25 Mg Tablet PO 1 tab DAILY DONNA Administration Enoxaparin Sodium 30 mg 01/24/20 09:00 01/28/20 10:05 Enoxaparin Sodium 30 Mg/0.3 Ml Syringe SC 30 mg 0900 DONNA Administration Lidocaine 1 patch 01/25/20 14:00 01/27/20 14:02 Lidocaine 5% Patch TD 1 patch 1400 DONNA Administration Miscellaneous Medication 1 each 01/26/20 02:00 01/28/20 03:02 Lidocaine Patch Removal 1 Each TOP Not Given 0200 DONNA Pantoprazole Sodium 40 mg 01/25/20 09:00 01/28/20 10:06 Pantoprazole 40 Mg Vial IVP 40 mg DAILY DONNA Administration Sodium Chloride 10 ml 01/24/20 09:00 01/28/20 10:06 Flush - Normal Saline 10 Ml Syringe IVF 10 ml Q12HR DONNA Administration Sodium Chloride 10 ml 01/24/20 08:00 01/24/20 08:17 Flush - Normal Saline 10 Ml Syringe IVF 10 ml PRN PRN Administration Saline Flush - Exam General Appearance: awake alert Eye: scleral icterus ENT: normocephalic atraumatic Neck: supple Heart: RRR Respiratory: normal chest expansion Gastrointestinal: soft, non-tender Psychiatric: normal affect, normal behavior Hosp A/P - Plan Assessment: (1) Hyperbilirubinemia Code(s): E80.6 - OTHER DISORDERS OF BILIRUBIN METABOLISM Status: Acute (2) Metastatic disease Code(s): C79.9 - SECONDARY MALIGNANT NEOPLASM OF UNSPECIFIED SITE Status: Acute (3) Hypokalemia Code(s): E87.6 - HYPOKALEMIA Status: Acute (4) Paranoid schizophrenia Code(s): F20.0 - PARANOID SCHIZOPHRENIA Status: Chronic (5) Low magnesium level Code(s): R79.0 - ABNORMAL LEVEL OF BLOOD MINERAL Status: Resolved Plan: Family and patient opted not to have biopsy of rib mass. Yesterday patient's daughter told me they would prefer hospice care. Apparently, they are still trying to make the decision. Disposition: Home hospice care versus home with home health.
[2020-01-28] MEDS: Lidocaine 5% Patch TD SCH (16:36)
[2020-01-29] MEDS: Lidocaine Patch Removal 1 EACH TOP SCH (02:30)
[2020-01-29] MEDS: Benztropine 1 MG TAB PO SCH ×2 (10:01→20:16)
[2020-01-29] MEDS: Amlodipine 10 MG TAB PO SCH (10:01)
[2020-01-29] MEDS: Enoxaparin Sodium 30 MG/0.3 ML SYRINGE SC SCH (10:02)
[2020-01-29] MEDS: Pantoprazole 40 MG VIAL IVP SCH (10:02)
[2020-01-29] MEDS: Bisoprolol Fumarate/HCTZ 10 mg/6.25 mg Tablet PO SCH (10:10)
--- NOTE | 2020-01-29 14:38 | PDOC.HOSPP ---
- Subjective Encounter Date: 01/29/20 Encounter Time: 12:00 Subjective: Patient seen in follow-up regarding hyperbilirubinemia. Family still trying to decide regarding hospice. - Objective Vital Signs & Weight: Vital Signs (12 hours) Temp Pulse Resp BP Pulse Ox 01/29/20 08:06 98.4 F 63 18 148/78 H 97 Weight Admit Weight 145 lb Weight 145 lb I&O: 01/28/20 01/29/20 01/30/20 06:59 06:59 06:59 Intake Total 760 240 Balance 760 240 Result Diagrams: 01/28/20 05:12 01/28/20 05:12 Additional Labs: I reviewed patient's labs and MAR Hospitalist ROS - Review of Systems Constitutional: denies: fever, chills, sweats, weakness, malaise Gastrointestinal: denies: nausea, vomiting, abdominal pain, diarrhea, constipation, melena, hematochezia - Medication Medications: Active Medications Generic Name Dose Route Start Last Admin Trade Name Freq PRN Reason Stop Dose Admin Amlodipine Besylate 10 mg 01/26/20 09:00 01/29/20 10:01 Amlodipine 10 Mg Tab PO 10 mg DAILY DONNA Administration Benztropine Mesylate 2 mg 01/25/20 21:00 01/29/20 10:01 Benztropine 1 Mg Tab PO 2 mg BID DONNA Administration Bisoprolol Fumarate/HCTZ 1 tab 01/26/20 09:00 01/29/20 10:10 Bisoprolol Fumarate/Hctz 10 Mg/6.25 Mg Tablet PO 1 tab DAILY DONNA Administration Enoxaparin Sodium 30 mg 01/24/20 09:00 01/29/20 10:02 Enoxaparin Sodium 30 Mg/0.3 Ml Syringe SC 30 mg 0900 DONNA Administration Lidocaine 1 patch 01/25/20 14:00 01/28/20 16:36 Lidocaine 5% Patch TD 1 patch 1400 DONNA Administration Miscellaneous Medication 1 each 01/26/20 02:00 01/29/20 02:30 Lidocaine Patch Removal 1 Each TOP 1 each 0200 DONNA Administration Pantoprazole Sodium 40 mg 01/25/20 09:00 01/29/20 10:02 Pantoprazole 40 Mg Vial IVP 40 mg DAILY DONNA Administration Sodium Chloride 10 ml 01/24/20 09:00 01/29/20 10:03 Flush - Normal Saline 10 Ml Syringe IVF 10 ml Q12HR DONNA Administration Sodium Chloride 10 ml 01/24/20 08:00 01/24/20 08:17 Flush - Normal Saline 10 Ml Syringe IVF 10 ml PRN PRN Administration Saline Flush - Exam General Appearance: awake alert Eye: anicteric sclera ENT: moist mucosa Neck: supple Heart: RRR Respiratory: CTAB Gastrointestinal: soft, non-tender Skin: no rashes Psychiatric: normal affect, normal behavior Hosp A/P - Plan Assessment: (1) Hyperbilirubinemia Code(s): E80.6 - OTHER DISORDERS OF BILIRUBIN METABOLISM Status: Acute (2) Metastatic disease Code(s): C79.9 - SECONDARY MALIGNANT NEOPLASM OF UNSPECIFIED SITE Status: Acute (3) Hypokalemia Code(s): E87.6 - HYPOKALEMIA Status: Acute (4) Paranoid schizophrenia Code(s): F20.0 - PARANOID SCHIZOPHRENIA Status: Chronic (5) Low magnesium level Code(s): R79.0 - ABNORMAL LEVEL OF BLOOD MINERAL Status: Resolved Plan: Case management involved, helping family decide regarding hospice versus home health versus other options. Discharge when arrangements made.
[2020-01-29] MEDS: Lidocaine 5% Patch TD SCH (18:23)
[2020-01-30] MEDS: Lidocaine Patch Removal 1 EACH TOP SCH (04:22)
[2020-01-30 06:07] LABS: Anion Gap 16 mmol/L (10-20); BUN (Urea Nitrogen) 10 mg/dL (9.8-20.1); Calc. Creatinine Clearance 97 mL/min (70-130); Calcium 9.6 mg/dL (7.8-10.44); Carbon Dioxide 24 mmol/L (23-31); Chloride 94 mmol/L (98-107); Estimated GFR-MDRD Greater than 90; Glucose 99 mg/dL (80-115); Potassium 3.5 mmol/L (3.5-5.1); Sodium 130 mmol/L (136-145)
[2020-01-30 06:17] LABS: #Eosinphils 0.5 thou/uL (0.0-0.7); #Lymphocytes 1.8 thou/uL (1.20-3.40); #Monocytes 0.7 thou/uL (0.11-0.59); #Neutrophils 4.9 thou/uL (1.40-6.50); %Basophils 0.6 % (0.0-1.0); %Lymphocytes 22.2 % (21.0-51.0); %Monocytes 9.1 % (0.0-10.0); %Neutrophils 62.3 % (42.0-75.0); Hemoglobin 11.7 g/dL (12.0-16.0); Mean Corpuscular HGB CONC 32.1 g/dL (32.0-36.0); Mean Corpuscular Hemoglobin 26.9 pg (27.0-31.0); Mean Corpuscular Volume 83.8 fL (78.0-98.0); Mean Platelet Volume 8.8 fL (7.4-10.4); Platelet Count 425 thou/uL (130-400); RBC Distribution Width 16.8 % (11.5-14.5); Red Blood Cell (RBC) Count 4.37 mill/uL (4.20-5.40); White Blood Cell (WBC) Count 7.9 thou/uL (4.8-10.8)
[2020-01-30] MEDS: Amlodipine 10 MG TAB PO SCH (09:53)
[2020-01-30] MEDS: Bisoprolol Fumarate/HCTZ 10 mg/6.25 mg Tablet PO SCH (09:53)
[2020-01-30] MEDS: Benztropine 1 MG TAB PO SCH (09:53)
[2020-01-30] MEDS: Enoxaparin Sodium 30 MG/0.3 ML SYRINGE SC SCH (09:54)
[2020-01-30] MEDS: Pantoprazole 40 MG VIAL IVP SCH (09:54)
[2020-01-30] MEDS: Lidocaine 5% Patch TD SCH (15:00)
[2020-01-30 15:40] VITALS: BP 130/73; TEMP 99
--- NOTE | 2020-01-31 01:33 | DIS ---
DATE OF ADMISSION: 01/24/2020 DATE OF DISCHARGE: 01/30/2020 PRIMARY CARE PROVIDER: Dr. Oc De La Torre. DISCHARGE DIAGNOSES: 1. Hyperbilirubinemia. 2. Metastatic malignancy. 3. Hyponatremia. 4. Hypokalemia. 5. Abnormal liver function tests. 6. Elevated carcinoembryonic antigen. CONDITION OF PATIENT ON THE DAY OF DISCHARGE: Stable. I assessed Ms. Asencio on the day of discharge. She denies any chest pain or shortness of breath. Vital signs are stable. S1 and S2 are heard, regular. Lungs are clear to auscultation bilaterally. CONSULTATIONS DURING THIS HOSPITALIZATION: Oncology, Ms. Bree Mccarthy and Gastroenterology, Dr. Quiroz. DISCHARGE MEDICATIONS: No change was made to her pre-admission home medications. FOLLOWUP: Post acute care followup: With primary care provider in 3 days. ACTIVITY: As tolerated. DIET: Regular. HOSPITAL COURSE: Ms. Asencio is a pleasant 64-year-old lady, who was admitted to [facility] on January 24, 2020, for abdominal pain. CT scan of the abdomen and pelvis showed findings suggestive of extensive metastasis with marked lymphadenopathy and osseous involvement. The distribution may be due to primary pancreatic mass involving the head of the pancreas with resultant dilatation of the intra and extrahepatic biliary system. Gastroenterology and Oncology Services were consulted. After discussion, family decided to pursue hospice care. She is being discharged home for hospice care. Family also did not wish to pursue biopsy. Many thanks for allowing me to participate in your patient's care. Please feel free to contact me with any questions or concerns. DISCHARGE DESTINATION: Home. TIME SPENT: Total amount of time spent coordinating this discharge: Thirty-two minutes. Job ID: [id number]
== END 2020-01-30 15:50 | disposition hospice, home (50) | DRG 435 ==
LOC: ERS 02:15 → T4-B 05:26
PROVIDERS: ADMIT Internal Medicine; ATTEND Internal Medicine
DX: C25.0 Malignant neoplasm of head of pancreas (principal); K83.1 Obstruction of bile duct; E87.1 Hypo-osmolality and hyponatremia; F20.0 Paranoid schizophrenia; Z51.5 Encounter for palliative care; Z20.828 Contact with and (suspected) exposure to other viral communicable diseases; C79.51 Secondary malignant neoplasm of bone; C78.6 Secondary malignant neoplasm of retroperitoneum and peritoneum; C78.7 Secondary malignant neoplasm of liver and intrahepatic bile duct; C77.2 Secondary and unspecified malignant neoplasm of intra-abdominal lymph nodes; C79.72 Secondary malignant neoplasm of left adrenal gland; C79.71 Secondary malignant neoplasm of right adrenal gland; E87.6 Hypokalemia; I10 Essential (primary) hypertension; E83.42 Hypomagnesemia; Z53.29 Procedure and treatment not carried out because of patient's decision for other reasons; Z28.21 Immunization not carried out because of patient refusal; Z79.899 Other long term (current) drug therapy
CPT/HCPCS: 36415; 36416; 74170; 74174; 76705; 80048; 80053; 81001; 82378; 83735; 85025; 85610; 85730; 86301; 87635; 96360; 96361; C9113; J0515; J1650; J2250; J2680; J3010; J3480; U0003